=== PATIENT | male | born 1960 | race African-American/Black ===

== ENCOUNTER 2018-04-16 19:47 | Inpatient (IN) | payer MEDICARE, MEDICAID ==
[~2018-04-16] VITALS: Ht 167.6 cm; Wt 72.6 kg
--- NOTE | ~2018-04-16 | PR ---
[place], [place] PROGRESS NOTE NAME: OUMOU CONNER UNIT #: [id number] ROOM: 309 DOCTOR: BYRON KNIGHT CNP BIRTHDATE: [birth year] DOS: 04/18/2018 CHIEF COMPLAINT: "I slept okay." SUMMARY OF VISIT: The patient was interviewed as he sat in the dining room. He engaged readily in conversation with me. He reports that he feels that his mood is improved. He feels calm. He denies any suicidal or homicidal ideation at this time. He denies any auditory or visual hallucinations. He reports that he slept better last night and that his appetite has been good. Staff reports that the patient slept for 7 hours last night without even taking his trazodone. He has exhibited no behaviors. He has been future focused. MENTAL STATUS EXAMINATION: The patient is alert and oriented to person, place and time. He is pleasant and cooperative with me. No lee or hypomania. No delusions or paranoia. No psychotic symptoms. No auditory or visual hallucinations. No suicidal ideation, no homicidal ideation. His mood is calm. His affect is congruent with his mood. PLAN: We will continue the patient's medications as prescribed. We will continue to monitor his mood and sleep pattern. We will continue to engage the patient in individual and evans milieu activity. Continue fall and safety precautions. Plan to return the patient to the least restrictive environment once he is considered psychiatrically stable. Byron Knight CNP CM:PNTRANS [id number] BYRON KNIGHT CNP 04/19/18 0915 interface
--- NOTE | ~2018-04-16 | WRIGHTHP ---
[place], [place] PATIENT HISTORY AND PHYSICAL EXAM NAME: OUMOU CONNER UNIT #: [id number] ROOM: 309 DOCTOR: BYRON KNIGHT CNP BIRTHDATE: [birth year] DOS: 04/17/2018 INITIAL PSYCHIATRIC EVALUATION CHIEF COMPLAINT: "I'm going through some bad things." HISTORY OF PRESENT ILLNESS: This is a 57-year-old -[place] male who presented to [facility] from his home. The patient was reporting that he had not slept for 7 days and that he felt homicidal towards his cousin and that he was also suicidal. Once the patient was medically cleared, he was transferred to the Behavioral Health Unit here at [facility]. He reported to the staff here that he has felt like killing himself. He scored a 47 on his suicide risk assessment and was placed on one-on-one. The patient reports that he has a history of depression and that he has been treated at [facility]. He reports that he sees a psychiatrist as well as a therapist there. He reports that he had been stable on trazodone 200 mg at bedtime as well as Seroquel 200 mg at bedtime; however, he has been off of his meds for 6 months and he feels that his mood has become very depressed. The patient did bring a large suitcase of his belongings with him. He asked the staff here that how long the patients usually stay here and he feels he will probably need to be here the maximum amount of time. He did admit to me that he used cocaine prior to going to the Emergency Room. His drug screen at [facility] was positive for cocaine. The patient was admitted to the [facility] to rule out further organic factors in attempt to stabilize him on medication, to engage him in individual and evans milieu activity and then return him to the least restrictive environment once he is considered psychiatrically stable. PAST MEDICAL HISTORY: Positive for angina with negative testing in 2008, depression, ear surgery, fractured jaw, sleep apnea, excision of left hand cyst and sickle cell anemia trait. SOCIAL HISTORY: The patient does occasionally smoke. He does admit to drinking alcohol as well as using cocaine. STRENGTHS: The patient is ambulatory and has good verbal skills. WEAKNESSES: Poor coping skills. MENTAL STATUS: The patient is alert and oriented x 3. His mood appears depressed. His affect is rather flat and is congruent with mood. He was pleasant and cooperative with me throughout the interview process. No lee or hypomania noted. No delusions or paranoia noted. No auditory or visual hallucinations noted. The patient is open to getting help. He reports he already feels better today than he did yesterday when he admitted to the unit. No gross psychotic symptoms noted. His memory is intact. DIAGNOSIS: Major depressive disorder, recurrent, severe. PLAN: I discontinued Remeron 15 mg at bedtime and started trazodone 50 mg at bedtime. We will continue the Zyprexa 5 mg twice a day. We will start vitamin [place], [place] PATIENT HISTORY AND PHYSICAL EXAM NAME: OUMOU CONNER UNIT #: [id number] ROOM: [facility] DOCTOR: BYRON KNIGHT CNP BIRTHDATE: [birth year] D 50,000 units, which was ordered by the primary care physician, also ordered vitamin B12 injection 1000 mcg to be given today. I will plan to consult Dr. Ch for psychological counseling. Engage the patient in individual and evans milieu activity and then return to the least restrictive environment when psychiatrically stable. Byron Knight CNP CM:HISPHYS:PATIENT HISTORY AND PHYSICAL EXAMINATION [id number] BYRON KNIGHT CNP 04/17/18 1419 interface
--- NOTE | ~2018-04-16 | PR ---
[place], [place] PROGRESS NOTE NAME: OUMOU CONNER UNIT #: [id number] ROOM: 315 DOCTOR: SHERI GOMEZ MD BIRTHDATE: [birth year] DOS: 04/22/2018 CHIEF COMPLAINT: "I am still not sleeping through the night, but I am starting to feel better." SUMMARY OF THE VISIT: The patient was interviewed as he was walking in the foley later as he stopped by his room. He engaged readily in conversation. He was much more goal oriented in his thinking and was much more positive that he was actually getting better. He still is perplexed over the fact that he is waking up multiple times during the night, but is able to rapidly fall back to sleep. In the morning when he wakes up, he is not somnolent or sedate. He is not unsteady on his feet. He reports that he is tolerating the medicines well. His only other complaint was bilateral pain radiating down the back of his legs to his heels. I did discuss the fact that we would set up outpatient followup to evaluate what the cause of the pain was and what intervention needed to be done on his behalf. MENTAL STATUS: He is alert and oriented. Mood does seem to be strongly trending towards euthymia. Affect is more appropriate. There is no lee, hypomania or psychosis. Short term, intermediate, and long-term memory are fully intact. PLAN: I will go ahead and increase his trazodone bringing it from 300 mg at bedtime to 450 mg at bedtime. We will monitor for risk, benefits. We will engage in individual and evans milieu activity, returning then to the least restrictive environment when psychiatrically stable. SHERI GOMEZ MD CM:PNTRANS 1203 [id number] SHERI GOMEZ MD 04/22/18 1230 interface
--- NOTE | ~2018-04-16 | PR ---
[place], [place] PROGRESS NOTE NAME: OUMOU CONNER UNIT #: [id number] ROOM: 315 DOCTOR: SHERI GOMEZ MD BIRTHDATE: [birth year] DOS: 04/20/2018 CHIEF COMPLAINT: "You know I am hearing voices. I don't know if I can be around people." SUMMARY OF THE VISIT: The patient was once again interviewed as he was resting in bed. He did get up and have breakfast and then went back to lay down. Prior to me talking to him, I had discussed the case with nursing who reports that out of the blue he has started to divulge that he is hearing voices and that he cannot be around people and share a room with anybody. My sense is that this is nothing more than an axis II ploy to have a private room. When confronted this morning about the need to move he initially put up a mild objection, but as I talked to him longer he nodded in approval and stated he would do whatever he needed to do to stay here in the hospital. Once again, he did also complain that he did not sleep through the night that despite the trazodone he slept better, but woke up in the middle of the night. Again, nurses report that he slept soundly through the entire night. MENTAL STATUS: He is alert and oriented. Mood does seem to be trending towards euthymia. Affect is more appropriate. There is no lee, hypomania or gross psychosis that I could see. Memory for the most part is intact. PLAN: Given the fact that he is tolerating the current medication regimen well and complaining of continued symptoms, I will adjust his medicines further bringing the trazodone from 150 mg at bedtime to 300 mg at bedtime and increasing the Zyprexa to 10 mg b.i.d. I have discussed the case at length with nursing and want him involved in all aspects of unit groups and activities to more actively participate in his treatment. We will engage in individual and evans milieu activities, returning to the least restrictive environment when psychiatrically stable. SHERI GOMEZ MD CM:PNTRANS [id number] 1307 SHERI GOMEZ MD 04/20/18 1308 interface
--- NOTE | ~2018-04-16 | PR ---
[place], [place] PROGRESS NOTE NAME: OUMOU CONNER UNIT #: [id number] ROOM: 315 DOCTOR: SHERI GOMEZ MD BIRTHDATE: [birth year] DOS: 04/21/2018 INTERVAL NOTE CHIEF COMPLAINT: "I slept a little better, but the pain in my leg is bothering me." SUMMARY OF THE VISIT: The patient was interviewed as he was resting quietly in bed once again, he reported to me that he slept better, but had an interrupted sleep, but was able to fall back asleep each time. He did get up this morning, had breakfast and was once again lying down in bed. He reports that when he listens to music at times, it will help him not have the negative thoughts in his head. He did complain of pain in his leg and requested intervention there and I defer this to the hospitalist. He did not seem sedated or somnolent in anyway and did not seem to be experiencing any side effects from the medicines as I saw no tardive dyskinesia, extrapyramidal symptoms, sedation or somnolence. MENTAL STATUS: He is alert and oriented. Mood does seem to be trending towards euthymia. Affect is more appropriate. There is no lee or hypomania noted. No gross psychosis. Memory is intact. PLAN: I will order Zostrix high potency cream t.i.d. to apply to his hip as a non-opiate option to relieve his pain. Beyond that, I defer any treatment of his pain to the hospitalist. I will maintain his current psychotropic regimen being Zyprexa 10 mg b.i.d. and trazodone 300 mg at bedtime to allow his body to adjust to the medication and for the medicine to work at this current dosing level before I make any further adjustments. SHERI GOMEZ MD CM:PNTRANS 1001 1308 SHERI GOMEZ MD 04/21/18 1309 interface
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
--- NOTE | ~2018-04-16 | EKG ---
[place], [place] ELECTROCARDIOGRAM REPORT NAME: OUMOU CONNER UNIT #: [id number] ROOM: 309 DOCTOR: MARCEL DRAFT REPORT BIRTHDATE: [birth year] [facility] Test Date: 2018-04-17 Test Time: 00:23:37 Pat Name: OUMOU CONNER Department: Room: 309 Gender: M Digital Photo Printer: Hillary Barnes : 1960 Requested By: HILLARY HEMPHILL Order Number: [id number] Reading MD: Babar Casillas MD Measurements Intervals [place] Rate: 61 P: 53 WY: 177 QRS: 19 QRSD: 84 T: 35 QT: 413 QTc: 416 Interpretive Statements Sinus rhythm Minimal ST elevation, lateral leads Baseline wander in lead(s) V3,V4,V5,V6 Electronically Signed On 04-17-2018 18:17:49 PST by Babar Casillas MD CM:EKGRPT:ELECTROCARDIOGRAM REPORT 0023 1817 HILLARY VARMA DRAFT REPORT HILLARY HEMPHILL DO
--- NOTE | ~2018-04-16 | PR ---
[place], [place] PROGRESS NOTE NAME: OUMOU CONNER UNIT #: [id number] ROOM: 309 DOCTOR: SHERI GOMEZ MD BIRTHDATE: [birth year] DOS: 04/19/2018 CHIEF COMPLAINT: "I am still not sleeping very well. I think the meds need to be adjusted." SUMMARY OF THE VISIT: The patient was interviewed as he was resting quietly in bed. He reported to me that he is still feeling depressed and still feeling restless and anxious. He is not sleeping well with difficulty falling asleep, sleep continuity disturbance. He reports no side effects from the medicines and is willing to allow me to adjust them. MENTAL STATUS: He is alert and oriented. Mood does seem to be depressed. Affect is flat, blunted, and constricted. There is no lee, hypomania or psychosis. PLAN: His vitamin B12 level is low normal at 247. I will go ahead and treat with vitamin B12 injection 1000 mcg IM monthly. I will increase simultaneously his Zyprexa from 5 mg b.i.d. to 5 mg in the morning and 10 mg at night to augment the effectiveness of the trazodone as an antidepressant agent. I will increase the trazodone then from 50 mg at bedtime to 150 mg at bedtime. Per his report, this was the dose that was effective while at home. We will engage in individual and evans milieu activity, returning to the least restrictive environment when psychiatrically stable. SHERI GOMEZ MD CM:PNTRANS 1022 1131 SHERI GOMEZ MD 04/19/18 1132 interface
[2018-04-16] MEDS ORDERED: NEURONTIN300 MG PO (21:16)
[2018-04-16] MEDS ORDERED: TRAMADOL HCL50 MG PO (21:18)
[2018-04-16] MEDS ORDERED: TRAZODONE100 MG PO (21:19)
[2018-04-16] MEDS ORDERED: QUETIAPINE FUM400 M1 PO (21:21)
[2018-04-16] MEDS ORDERED: FISH OIL 500 M1 EAC1 PO (21:38)
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
--- NOTE | 2018-04-16 22:55 | NUR ---
DR ANTON UPDATED ABOUT ADMISSION AND PATIENT PLACED UNDER DR. MOSCOSO FOR MEDICAL MANAGEMENT
--- NOTE | 2018-04-16 22:56 | NUR ---
ACCOUNTING ADMINISTRATOR CALLED AND UPDATED THAT ADMISSION WAS ON THE FLOOR INVOLUNTARILY AT 0317
[2018-04-16 23:05] VITALS: BP 127/82
--- NOTE | 2018-04-16 23:10 | NUR ---
DR HEMPHILL ON THE UNIT TO SEE PATIENT
--- NOTE | 2018-04-16 23:49 | NUR ---
THIS NURSE UPDATED ON PT'S SUICIDE RISK SCORE FROM ADMITTING RN. SCORE NOTED TO BE 47. AUGUSTIN, IRON WORKER FOREMAN, NOTIFIED AT 2342. SHLOMO MENDEZ, NOTIFIED AT 2346 WITH A NEW ORDER TO PLACE PT ON 1:1 AT THIS TIME. NURSING MOSAIC LAYER UPDATED AT 2346. PT WAS ALSO UPDATED ON NEW ORDER. PT IS CURRENTLY SITTING WITH ADMITTING RN.
--- NOTE | 2018-04-17 00:15 | NUR ---
DR ANTON CALLED AND REVIEWED MEDICATIONS WITH THIS NURSE THAT WERE PUT ON HOLD BY DR GOMEZ. DR ANTON ALSO UPDATE ABOUT PATIENT BEING 1:1 AND HEALTH HISTORY TO BE UPDATED TO ADD SICKLE CELL ANEMIA IS A TRAIT ONLY AND PATIENT ALSO HAS SLEEP APNEA
--- NOTE | 2018-04-17 00:20 | NUR ---
RADIOLOGY ON UNIT TO SEE PATIENT FOR A EKG
--- NOTE | 2018-04-17 01:00 | NUR ---
RESPIRATORY CALLED TO UPDATE ABOUT PATIENT HAVING SLEEP APNEA. RESPIRATORY TO FOLLOW UP WITH PATIENT. RESPIRATORY AWARE THAT PATIENT HAS NOT BEEN ON OXYGEN AND SPO2 IS 100% ON ROOM AIR AT THIS TIME
[2018-04-17 01:26] VITALS: BP 127/82
--- NOTE | 2018-04-17 02:54 | NUR ---
24 HR chart check completed.
--- NOTE | 2018-04-17 06:21 | NUR ---
PATIENT SLEPT 1 HOUR OF INTERRUPTED SLEEP THROUGHOUT SHIFT. PATIENT TEARFUL AND STATING THAT HE JUST WANTS TO BE NORMAL AGAIN. PATIENT STATED THAT HE DOESN'T WANT TO HURT ANYONE. PATIENT STATED THAT HE IS GLAD HE CAME HERE AND HOPES HE CAN GET THE HELP HE NEEDS. PATIENT CONTINUES TO BE ON 1:1 OBSERVATION
[2018-04-17 06:28] LABS: BASO % 0.3 % (0.0-1.0); EOS # 0.5 10*3/uL (0.0-0.4); EOS % 6.2 % (1.0-4.0); HEMOGLOBIN 13.9 g/dl (14.0-18.0); LYMPH # 2.6 10*3/uL (1.3-4.4); LYMPH % 32.8 % (27.0-41.0); MEAN CELL VOLUME 88.1 fl (80.0-94.0); MEAN CORPUSCULAR HGB 30.6 pg (27.0-31.0); MEAN CORPUSCULAR HGB CONC 34.8 g/dl (33.0-37.0); MEAN PLATELET VOLUME 9.9 fl (9.6-12.3); MONO # 0.6 10*3/uL (0.1-1.0); NEUT # 4.2 10*3/uL (2.3-7.9); NEUT % 53.2 % (47.0-73.0); PLATELET COUNT AUTOMATED 241 10*3/uL (130-400); RED BLOOD COUNT 4.54 10*6/uL (4.50-5.90); RED CELL DISTRI WIDTH 12.9 % (0-14.5)
[2018-04-17 06:56] LABS: ALBUMIN 3.5 gm/dl (3.1-4.5); BUN 14 mg/dl (7-24); CHLORIDE 108 mmol/L (98-107); CHOLESTEROL 146 mg/dL (<200); CREATININE 1.29 mg/dL (0.70-1.30); HDL CHOLESTEROL 38 mg/dl (40-60); LDL CHOLESTEROL 82 mg/dL (9-159); POTASSIUM 3.6 mmol/L (3.5-5.1); SGOT/AST 18 IU/L (3-35); SGPT/ALT 29 U/L (12-78); SODIUM 141 mmol/L (136-145); TRIGLYCERIDES 131 mg/dl (<150); VLDL CHOLESTEROL 26 mg/dL (6-40)
[2018-04-17 07:03] LABS: ALKALINE PHOSPHATASE 71 U/L (45-117)
[2018-04-17 07:31] LABS: VITAMIN D, 25-HYDROXY 9.8 ng/mL (30-100)
[2018-04-17 08:00] VITALS: BP 124/84
--- NOTE | 2018-04-17 09:13 | NUR ---
DR. SMALL ON FLOOR TO ASSESS PATIENT. MADE AWARE HGB 13.9, HCT 40.0, AMMONIA LEVEL 41, AND VITAMIN D LEVEL 9.8.
--- NOTE | 2018-04-17 10:46 | NUR ---
1:1 OBSERVATION DISCONTINUED PER KERMIT LAWSON. PT PLACED ON Q15 MIN SAFETY CHECKS.
[2018-04-17 12:38] LABS: BILIRUBIN NEGATIVE (NEGATIVE); BLOOD NEGATIVE (NEGATIVE); CLARITY CLEAR (CLEAR); COLOR YELLOW (YELLOW); GLUCOSE NEGATIVE (NEGATIVE); KETONE NEGATIVE (NEGATIVE); LEUKO ESTERASE NEGATIVE (NEGATIVE); NITRITE NEGATIVE (NEGATIVE); SPECIFIC GRAVITY <= 1.005 (1.005-1.030); UROBILINOGEN 0.2 E.U./dl (0.2-1.0)
--- NOTE | 2018-04-17 13:10 | NUR ---
Shift chart check completed.
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
--- NOTE | 2018-04-17 18:50 | NUR ---
Completed psychosocial assessment.
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
[2018-04-17 20:00] VITALS: BP 122/80
--- NOTE | 2018-04-17 23:00 | NUR ---
P-DEPRESSION AND SUICIDAL IDEATION. PATIENT ALERT AND ORIENTED. PATIENT VERBALIZED HAVING BAD FEELINGS AND STATES "I AM STILL AT THE POINT WHERE I KNOW I WILL HURT MYSELF. PATIENT DENIES PLAN. PATIENT WITH NO HALLUCINATIONS OR DELUSIONS I-REDIRECTION WITH 1:1 INTERACTION. EDUCATE AND ENCOURAGE MEDICATION COMPLIANCE. DISCUSS WITH PATIENT TRIGGERS FOR DEPRESSED MOOD AND SUICIDAL IDEATIONS AND COPING SKILLS FOR DEPRESSIVE EPISODES AND THOUGHTS OF SUICIDE R-PATIENT REDIRECTABLE WITH 1:1 INTERACTION AND VERBALIZES FEELING LESS DEPRESSED WHEN ABLE TO TALK ABOUT HIS FEELINGS AT TIMES. PATIENT IS ISOLATIVE, WITHDRAWN. PATIENT DID NOT RECEIVE MEDICATIONS AT DUE TO SLEEPING. PATIENT VOICED HAVING NOT BEING ABLE TO SLEEP FOR DAYS AND JUST WANTED TO SLEEP. P-CONTINUE MEDICATION COMPLIANCE, CONTINUE REDIRECTION WITH 1:1, ENCOURAGE GROUP THERAPY WHILE AWAKE
--- NOTE | 2018-04-18 02:09 | NUR ---
24 HR chart check completed.
--- NOTE | 2018-04-18 05:58 | NUR ---
PATIENT SLEPT 7 HOURS OF INTERRUPTED SLEEP THROUGHOUT SHIFT. Q 15 MINUTE CHECKS MAINTAINED
[2018-04-18 08:06] VITALS: BP 118/72
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
--- NOTE | 2018-04-18 16:27 | NUR ---
PERSONAL DAILY GOAL PT DAILY GOAL IS TO BETTER EXPRESS SELF THAN TO ISOLATE AND STAY ALONE.
[2018-04-18 20:31] VITALS: BP 118/77
--- NOTE | 2018-04-19 01:59 | NUR ---
24 HR chart check completed.
--- NOTE | 2018-04-19 04:39 | NUR ---
NO ADVERSE MOODS OR BEHAVIORS NOTED. PT SAT IN DINNINGROOM WATCHING A FOOTBALL GAME WITH PEERS AND INTERACTING WITH PEERS. MEDICATION COMPLIANT. EDUCATION PROVIDED REGARDING MEDICATIONS. BEHAVIORS MONITORED WITH Q15 MINUTE SAFETY CHECKS. CONTINUE TO ENCOURAGE MORE INTERACTIONS WITH PEERS AND STAFF.
--- NOTE | 2018-04-19 05:37 | NUR ---
PT SLEPT APPROXIMATELY 7 HOURS THIS SHIFT. Q15 MINUTE SAFETY CHECKS MAINTAINED.
[2018-04-19 07:16] VITALS: BP 121/68
--- NOTE | 2018-04-19 09:00 | NUR ---
Treatment Plan meeting with Dr. Carrero, RN, AT, SW and Radiologic Technician. Plan for discharge at the end of the week. Pt. to return home.
--- NOTE | 2018-04-19 10:00 | NUR ---
DR. SMALL ON UNIT TO ASSESS PATIENT.
--- NOTE | 2018-04-19 11:32 | NUR ---
AM GROUP/EXERCISES/FOCUS/ART PT ATTENDED AND PARTICIPATED IN GROUP. PT PLEASANT AND ON TASK. PT EXPRESSES INTEREST IN ART AND STATES "IM GLAD I TRIED THIS". PT DID NOT EXPRESS ANY SUICIDAL IDEATIONS AT THIS TIME. PT CONTINUE TO KEEP TO SELF WITH NO INTERACTION WITH PEERS. PT DID NOT EXPRESS ANY SUICIDAL OR HOMICIDAL IDEATIONS AT THIS TIME. PT WILL CONTINUE TO ATTEND AND PARTICIPATE IN FUTURE GROUP SESSIONS.
--- NOTE | 2018-04-19 11:34 | NUR ---
PERSONAL DAILY GOAL PT PERSONAL DAILY GOAL IS TO UTILIZE SELF-EXPRESSION DUE TO NOT OPENING UP. PT WILL UTILIZE ACTIVITYIES TO ASSIST WITH SELF-EXPRESSION.
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
--- NOTE | 2018-04-19 15:19 | NUR ---
PM GROUP/MOVIE PT ATTENDED AND PARTICIPATED DURING GROUP. PT PLEASANT AND ON TASK. PT INTERACTING WITH PEERS MORE SO THAN IN PREVIOUS GROUP. PT INTERESTED IN WHERE TO GET AN AROMATHERAPY DIFFUSER FOR HIS OWN PLACE. PT DID NOT EXPRESS ANY SUICIDAL OR HOMICIDAL IDEATIONS AT THIS TIME. PT WILL CONTINUE TO ATTEND AND PARTICIPATE IN FUTURE GROUP SESSIONS.
--- NOTE | 2018-04-19 16:38 | NUR ---
PATIENT SIGNED IN VOLUNTARY TO [facility] UNIT.
[2018-04-19 20:00] VITALS: BP 126/63; BP 131/70
--- NOTE | 2018-04-20 00:21 | NUR ---
24 HR chart check completed.
--- NOTE | 2018-04-20 02:14 | NUR ---
P-DEPRESSED, ISOLATIVE I-VERBAL INTERVENTION FOR EMOTIONAL SUPPORT, ADMINISTER MEDICATIONS, MONITOR SLEEP R-DEPRESSED MOOD, ISOLATIVE TO SELF BUT SITS IN THE DINING ROOM WITH OTHER PEERS WATCHING TV & KEEPING TO HIMSELF. VERBALLY LIMITED. DENIES SUICIDAL FEELINGS, STATED HE "STILL HAS THOUGHTS" BUT WOULD NOT ELABORATE, COMPLIANT WITH ALL HS MEDICATIONS P-CONTINUE TO MONITOR & PROVIDE WITH EMOTIONAL SUPPORT NEEDED
--- NOTE | 2018-04-20 05:39 | NUR ---
PT HAS SLEPT PAST 2315 WITH 1 BRIEF AWAKENING TO GO TO THE BATHROOM
[2018-04-20 07:57] VITALS: BP 129/69
--- NOTE | 2018-04-20 08:30 | NUR ---
Treatment Plan meeting with Dr. Carrero, RN, AT, SW and Electronics Computer Mechanic. Plan for discharge at the end of the week. Pt. to return home.
--- NOTE | 2018-04-20 08:30 | NUR ---
PHYSICAL THERAPY Patient was eating breakfast this am when first approached for therapy visit and sound asleep in bed upon second attempt. Will continue per POC as tolerated. Zeke Doan, RAILCAR FOREMAN
--- NOTE | 2018-04-20 10:23 | NUR ---
PATIENT COMPLAINING OF BILATERAL LEG PAIN, RATING 9/10 PAIN SCALE. PRN TYLENOL 650MG PO GIVEN AT THIS TIME.
--- NOTE | 2018-04-20 11:21 | NUR ---
PRN TYLENOL EFFECTIVE, PATIENT STATED "LEGS FEEL BETTER".
--- NOTE | 2018-04-20 12:08 | NUR ---
PERSONAL DAILY GOAL SOCIAL INTERACTION PT IS ISOLATIVE TO ROOM AND CHOSES NOT TO ATTEND GROUP THERAPY OR TO SOCIALIZE WITH PEERS.
--- NOTE | 2018-04-20 12:09 | NUR ---
AM GROUP/FOCUS ON TASK PT CHOSE NOT TO ATTEND MORNING GROUP THERAPY. PT STAYED IN ROOM
--- NOTE | 2018-04-20 15:49 | NUR ---
PM GROUP/MUSIC AND SOCIALIZATION PT CHOSE NOT TO ATTEND AFTERNOON GROUP THERPAY. PT STAYED IN HIS ROOM.
--- NOTE | 2018-04-20 16:39 | NUR ---
Pt demonstrates progress towards goals with QUALITY PROCESS LEAD reporting good progress continues with plan to extend goals at this time until 04/29/18. Tika Manning, PT
[2018-04-20 19:49] VITALS: BP 135/72
--- NOTE | 2018-04-20 22:18 | NUR ---
MYLANTA GIVEN PER ORDERS FOR UPSET STOMACH
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
--- NOTE | 2018-04-21 00:25 | NUR ---
APPEARS MYLANTA EFFECTIVE FOR INDIGETION. RESTING QUIET
--- NOTE | 2018-04-21 01:24 | NUR ---
24 HR chart check completed.
[2018-04-21 07:59] VITALS: BP 124/67
--- NOTE | 2018-04-21 08:30 | NUR ---
Treatment Plan meeting with Dr. Carrero, RN, AT, and Licensing Registration Examiner. Plan for discharge Thursday. Pt. to return home.
--- NOTE | 2018-04-21 08:35 | NUR ---
PHYSICAL THERAPY Patient was approached several times this am for therapy visit and was sleeping first attmept. Upon second attmept, patient reports c/o low back, B LE pain which travels down his legs causing increased pain / muscle weakness. Patient educated on low back ex, however requested he wanted to rest this date for fear of pain worsening. Patient remained in bed under [facility] staff Supervision and will continue per POC as able. Zeke Doan, MARKER SHIPMENTS
--- NOTE | 2018-04-21 09:31 | NUR ---
PERSONAL DAILY GOAL INTERPERSONAL INTERACTIONS PT IS VERY ISOLATIVE. PT IS UNCOMFORTABLE "BEING AROUND PEOPLE" PT WILL ATTEND GROUP THERPAY TODAY AND WORK ON INTERACTIONS WITH PEERS AND STAFF
--- NOTE | 2018-04-21 10:44 | NUR ---
DR. SMALL ON UNIT TO ASSESS PATIENT.
--- NOTE | 2018-04-21 11:03 | NUR ---
PATIENT COMPLAIN OF PAIN 8/10 TO BILATERAL POSTERIOR UPPER THIGH PAIN. PRN ULTRAM 50MG GIVEN PO AT THIS TIME.
--- NOTE | 2018-04-21 12:03 | NUR ---
PATIENT SITTING IN CHAIR WITH ONE LEG OVER ARM OF CHAIR, NO LONGER COMPLAINING OF PAIN. PRN ULTRAM EFFECTIVE.
--- NOTE | 2018-04-21 12:04 | NUR ---
AM GROUP/CURRENT EVENTS/FOCUS GROUP PT ATTENDED AND PARTICIPATED IN ALL GROUP ACTIVITIES. PT EXPRESSED NO SUICIDAL OR HOMICIDAL IDEATIONS DURING GROUP. PT WAS PLEASANT, TALKATIVE AND ON TASK.
--- NOTE | 2018-04-21 14:37 | NUR ---
Patient not available for Occupational Therapy as he is in group therapy session. Nahun Costa OTR/L
--- NOTE | 2018-04-21 15:50 | NUR ---
PM GROUP/CREATIVE OUTLETS PT ATTENDED AND PARTICIPATED IN ALL GROUP ACTIVITIES. PT EXPRESSED NO SUICIDAL OR HOMICIDAL IDEATIONS DURING GROUP. PT WILL CONTINUE TO ATTEND AND PARTICIPATE IN GROUP
--- NOTE | 2018-04-21 18:19 | NUR ---
P: ISOLATIVE TO ROOM, EXCEPT FOR MEALS/GROUP SESSION I: ENCOURAGED PATIENT TO BE OUT OF ROOM MORE, PROVIDE ONE ON ONE NEEDED R: EFFECTIVE P: CONTINUE TO PRVIDE ONE ON ONE AND ENCOURAGEMENT NEEDED PATIENT IS ALERT AND ORIENTED TO PERSON, PLACE, TIME AND SITUATION; ABLE TO VOICE NEEDS. MOOD IS SLIGHTLY DEPRESSED. DENIES ANY HALLUCINATIONS OR DELUSIONS. PATIENT CONTINUES TO HAVE THOUGHTS OF SI/HI WITH NO PLAN. PATIENT DENIES HAVING AND WEAPONS AT HOME, CONTRACTED FOR SAFETY. PATIENT PROVIDED WITH ULTRAM FOR PAIN MANAGEMENT AND EFFECTIVE. MEDICATION COMPLAINT WITH EDUCATION. Q 15 MINUTE SAFETY CHECKS MAINTAINED. INDEPENDANT WITH ACTIVITIES OF DAILY LIVING, CONTINENT OF BOWEL AND BLADDER. SET UP FOR MEALS, INTAKES ARE GOOD WITH ADEQUATE FLUID. AMBUALTORY WITH STEADY GAIT. CONTINUE TO MONITOR PAITENT FOR HI/SI AND ASSIST PATIENT WITH IDENTIFYING AND DEVELOP COPING SKILL.
[2018-04-21 19:56] VITALS: BP 132/71
--- NOTE | 2018-04-21 23:30 | NUR ---
24 HR chart check completed.
--- NOTE | 2018-04-22 06:35 | NUR ---
PATIENT SLEPT 6 HOURS OF INTERRUPTED SLEEP THROUGHOUT SHIFT Q 15 MINUTE CHECKS MAINTAINED
[2018-04-22 08:00] VITALS: BP 115/59
--- NOTE | 2018-04-22 08:30 | NUR ---
Treatment Plan meeting with Dr. Carrero, RN, AT, and Panel Beater. Plan for discharge Thursday. Pt. to return home.
--- NOTE | 2018-04-22 09:12 | NUR ---
PERSONAL DAILY GOAL SUPPORT SYSTEMS PT EXPRESSED CONCERN AT HAVING "NO ONE". PT WILL BENEFIT FROM DISCOVERING OTHER SUPPORT SYSTEMS SUCH SENIOR CENTERS OR DEPT OF AGING
--- NOTE | 2018-04-22 11:03 | NUR ---
Occupational Therapy referral received and screen completed. Nursing staff reports that patient is independent in all ADls and functional mobility on the unit. No further OT inidicated at this time. Thank you. Clemencia Costa OTR/L
--- NOTE | 2018-04-22 12:12 | NUR ---
AM GROUP/INTERPERSONAL INTERACTIONS PT DID NOT ATTEND MORNING GROUP THERAPY, PT WAS GETTING A SHOWER.
--- NOTE | 2018-04-22 15:00 | NUR ---
Met with IP director and digital sales planner regarding taxi and medicaid transportation. Confirmed with Dr. Carrero that pt can be made aware of discharge plan to obtain transportation and he indicated yes. Consulted with , U director, psychologists, and risk lead separately regarding duty to warn and plan to call the police. Met with pt and discussed transportation barriers and plan for discharge and pt obtained numbers from his cell under supervision and called his bank on this junior technical writer's cell and with supervision but there were not enough funds for a taxi. However, pt was able to reach a friend Bandar Portillo who confirmed he will hand picker pt tomorrow at 5 or 530pm for discharge. He was provided phone number to this junior technical writer's cell as well as the unit if he is running late as he has a few appts. tomorrow first. Nurses and digital sales planner notified of plan for discharge.
--- NOTE | 2018-04-22 15:49 | NUR ---
PM GROUP/STRESS REDUCTION PT ATTENDED AND PARTICIPATED IN ALL GROUP ACTIVITIES. PT EXPRESSED NO SUICIDAL OR HOMOCIDAL IDEATIONS DURING GROUP. PT WAS PLEASED WITH THE RESULTS OF HIS ARTWORK AND STATED, "I FOUND MYSELF A NEW HOBBY! I CAN'T BELIEVE HOW FAST THE TIME GOES WHEN I'M DOING THIS1"
--- NOTE | 2018-04-22 18:50 | NUR ---
PT ALERT, ORIENTED, AND INDEPENDENT. PT CONVINCINGLY DENIES ANY SI/HI, PLAN, OR INTENT. APPETITE GOOD FOR MEALS. STATES HE IS FEELING MUCH BETTER THIS SHIFT. VERBALIZES GOOD RELIEF FROM [employer] AND DENIES ANY PAIN. MEDICATION COMPLIANT WITHOUT DIFFICULTY. Q15 MIN CHECKS PER ORDERS.
[2018-04-22 20:00] VITALS: BP 142/80
--- NOTE | 2018-04-23 00:23 | NUR ---
24 HR chart check completed.
--- NOTE | 2018-04-23 08:30 | NUR ---
Treatment Plan meeting with Dr. Carrero, RN, AT, SW and Die Polisher. Plan for discharge today.
[2018-04-23 08:31] VITALS: BP 120/68
--- NOTE | 2018-04-23 08:50 | NUR ---
PHYSICAL THERAPY Patient seen this am for therapy visit and was leaving activity room following breakfast upon theapist arrival. Several [facility] staff members present in hallway for observation only as theapist approached patient, who was very polite / pleasant this morning. Patient reports decreased c/o low back / B LE pain this session and only mild B distal hamstring tightness. Patient ambulates Independently ad stuart in [facility] 125'x 1and completed several standing balance activities including eyes open/closed without deviation, single leg stance, L + R tolerates 6 seconds each side prior to LOB and Tandem walk @ rail 10 feet x 2. Patient able to complete 4-5 steps before LOB without support and remained in hallway under [facility] staff Supervison following all treatment. Will continue per POC as tolerated, total treatment time 14 minutes. Zeke Hanson, RIDER TICKET WORKER
--- NOTE | 2018-04-23 09:16 | NUR ---
DR. MENDIETA NOTIFIED OF PATIENT BEING DISCHARGE TODAY, TO INFORM DR. VELASQUEZ ON DISCHARGE.
[2018-04-23] MEDS ORDERED: TRAZODONE150 MG PO (09:52)
[2018-04-23] MEDS ORDERED: EUCERIN, DERMA120 GM T (09:52)
[2018-04-23] MEDS ORDERED: Zostrix 0.1% T (09:52)
[2018-04-23] MEDS ORDERED: B121000 MCG/1 IM (09:52)
[2018-04-23] MEDS ORDERED: NEURONTIN300 MG PO (09:52)
[2018-04-23] MEDS ORDERED: OLANZAPINE10 MG PO (09:52)
[2018-04-23] MEDS ORDERED: Vitamin D PO (10:55)
--- NOTE | 2018-04-23 11:13 | NUR ---
PT ALERT AND ORIENTED X4, MEMORY INTACT. MOOD IS STABLE AND EUTHYMIC WITH APPROPRIATE AFFECT. CONVINCINGLY DENIES ANY SI/HI, PLAN, OR INTENT. VERBALLY CONTRACTED FOR SAFETY. APPETITE GOOD FOR MEALS. INTERACTING WELL WITH PEERS. AMBULATING WITH SLOW AND STEADY GAIT. Q15 MIN CHEKS PER OBSERVATION ORDERS.
--- NOTE | 2018-04-23 12:18 | NUR ---
AM GROUP/EXERCISES/GAME/ART PT ATTENDED AND PARTICIPATED IN GROUP. PT PLEASANT AND ON TASK. 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 PT DID NOT EXPRESS ANY SUICIDAL OR HOMICIDAL IDEATIONS AT THIS TIME. PT WILL PREP FOR DISCHARGE FROM UNIT TODAY.
--- NOTE | 2018-04-23 14:49 | NUR ---
PRN MAALOX GIVEN AT THIS TIME FOR C/O INDIGESTION. WILL CONTINUE TO MONITOR FOR EFFECTIVENESS.
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
--- NOTE | 2018-04-23 15:01 | NUR ---
PATIENT COMPLAINED OF GI UPSET, PRN MAALOX 30ML GIVEN PO AT THIS TIME.
--- NOTE | 2018-04-23 15:05 | NUR ---
PRN MAALOX EFFECTIVE PER PT.
--- NOTE | 2018-04-23 16:46 | NUR ---
PATIENT DISCHARGED AT THIS TIME VIA PRIVATE VEHICLE IN CARE OF FRIEND. LOCKBOX AND HOME MEDICATIONS SENT WITH PATIENT ALONG WITH DISCHARGE INSTRUCTIONS. Discharge instructions reviewed with patient. Patient receptive and verbalizes understanding. Follow-up care arranged. Written instructions given to patient. JOSE M MARTINEZ
--- NOTE | 2018-04-23 17:25 | NUR ---
Offered support regarding discharge plan.
--- NOTE | 2018-04-26 07:50 | NUR ---
PHYSICAL THERAPY CO-SIGN I approve of the Phyical Therapy notes written above. LETY JONAS PT
== END 2018-04-23 16:46 | disposition home or self-care (01) | DRG 885 ==
LOC: 3N 19:47
PROVIDERS: ADMIT Psychiatry & Neurology Psychiatry
DX: F33.2 Major depressive disorder, recurrent severe without psychotic features (principal); R45.851 Suicidal ideations; E72.20 Disorder of urea cycle metabolism, unspecified; E87.8 Other disorders of electrolyte and fluid balance, not elsewhere classified; F41.9 Anxiety disorder, unspecified; G47.33 Obstructive sleep apnea (adult) (pediatric); G47.00 Insomnia, unspecified; G62.9 Polyneuropathy, unspecified; G89.29 Other chronic pain; M54.2 Cervicalgia; L30.9 Dermatitis, unspecified; F14.90 Cocaine use, unspecified, uncomplicated; F17.200 Nicotine dependence, unspecified, uncomplicated; F10.10 Alcohol abuse, uncomplicated; R73.9 Hyperglycemia, unspecified; E55.9 Vitamin D deficiency, unspecified; D64.9 Anemia, unspecified